=== PATIENT | male | born 1945 | race Caucasian/White ===

== ENCOUNTER 2019-09-25 18:31 | Emergency (ER) | payer OTHER, MEDICARE ==
[~2019-09-25] VITALS: Ht 167.6 cm; Wt 59.0 kg
[~2019-09-25 18:31] MED LIST: ACET325 PO; ASPI81CH PO; LISI5; OXYB5; SULTRIDS PO; TERA5
[2019-09-25 19:52] LABS: BASOPHILS ABSOLUTE AUTO 0.06 K/mm3 (0.00-0.23); BASOPHILS PERCENT AUTO 1 % (0-2); EOSINOPHILS ABSOLUTE AUTO 0.01 K/mm3 (0.00-0.68); EOSINOPHILS PERCENT AUTO 0 % (0-6); Hematocrit 48.6 % (37.0-53.0); Hemoglobin 16.6 g/dL (13.5-17.5); IMMATURE GRAN ABSOLUTE AUTO 0.07 K/mm3 (0.00-0.10); IMMATURE GRAN PERCENT AUTO 1 % (0-1); LYMPHOCYTES ABSOLUTE AUTO 0.48 K/mm3 (0.84-5.20); LYMPHOCYTES PERCENT AUTO 4 % (21-46); MONOCYTES ABSOLUTE AUTO 0.46 K/mm3 (0.16-1.47); MONOCYTES PERCENT AUTO 4 % (4-13); Mean Corpuscular HGB 32.5 pg (26.0-34.0); Mean Corpuscular HGB Conc 34.2 g/dL (31.5-36.5); Mean Corpuscular Volume 95 fL (80-100); Mean Platelet Volume 9.1 fL (9.1-12.4); NEUTROPHILS ABSOLUTE AUTO 11.02 K/mm3 (1.96-9.15); NEUTROPHILS PERCENT AUTO 91 % (41-73); Platelet Count 220 K/mm3 (150-400); RDW Coefficient Variation 12.4 % (11.7-14.2); RDW Standard Deviation 44.1 fL (35.1-46.3)
[2019-09-25 20:10] LABS: Alanine Aminotransfer (ALT/SGP 23 U/L (12-78); Albumin, Blood 3.5 g/dL (3.4-5.0); Albumin/Globulin Ratio 0.7 (0.8-1.8); Alk Phos 93 U/L (50-136); Anion Gap 11 mmol/L (6-16); Aspartate Aminotrans (AST/SGOT 25 U/L (12-37); Bilirubin, Total 0.9 mg/dL (0.1-1.0); Blood Urea Nitrogen 17 mg/dL (8-24); Bun/Creatinine Ratio 14.8 (12.0-20.0); CO2, Blood 21 mmol/L (21-32); Calcium, Blood 8.3 mg/dL (8.5-10.1); Chloride, Blood 101 mmol/L (98-108); Creatinine, Blood 1.15 mg/dL (0.60-1.20); Ethanol (Alcohol), Blood, Med <3 mg/dL; Globulin, Blood 4.8 g/dL (2.2-4.0); Glomerular Filtration Rate >60 (60-); Glucose, Blood 126 mg/dL (70-99); Sodium, Blood 133 mmol/L (136-145); Total Protein, Blood 8.3 g/dL (6.4-8.2)
[2019-09-25 20:43] LABS: Source, Urine Catheter
[2019-09-25 20:47] LABS: Bilirubin, Urine Neg (Neg); Blood, Urine 5+ (Neg); Glucose Qualitative, Urine Neg (Neg); Ketones, Urine 1+ (Neg); Leukocyte Esterase, Urine 3+ (Neg); Nitrite, Urine Pos (Neg); Protein, Urine 3+ (Neg); Specific Gravity, Urine 1.015 (1.003-1.022); Urobilinogen, Urine NORM (Normal)
[2019-09-25 20:53] LABS: Appearance, Urine Hazy (Clear); Color, Urine Yellow (P-Yellow)
[2019-09-25 20:58] LABS: Amorphous Light (0-Heavy); Bacteria Mod /hpf; Squamous Epithelial Cells Few /hpf (Few); Transitional Epithelial Cells Rare /hpf (0-Rare)
[2019-09-25 21:10] LABS: U Amphetamine Screen Not Detected; U Barbituate Screen Not Detected; U Benzodiazapine Screen Not Detected; U Buprenorphine Screen Not Detected; U Cannabinoids Screen Not Detected; U Cocaine Screen Not Detected; U Methadone Screen Not Detected; U Methamphetamine Screen Not Detected; U Opiates Screen Not Detected; U Oxycodone Screen Not Detected; U Phencyclidine Screen Not Detected; U Propoxyphene Screen Not Detected
[2019-09-25] MEDS ORDERED: AMLO5 PO (21:55)
[2019-09-25] MEDS ORDERED: FINA5 PO (22:08)
[2019-09-25] MEDS ORDERED: CALCIUM 600 +1 EA11 PO (22:09)
[2019-09-25] MEDS ORDERED: OXYB5 PO (22:09)
== END 2019-09-26 00:11 | disposition home or self-care (01) ==
LOC: ER 18:31
PROVIDERS: Emergency Medicine
DX: R56.9 Unspecified convulsions (principal); I10 Essential (primary) hypertension; Z79.82 Long term (current) use of aspirin; Z79.899 Other long term (current) drug therapy; Z87.820 Personal history of traumatic brain injury
CPT/HCPCS: 36415; 51702; 70450; 80053; 81001; 85025; 87077; 87086; 87186; 93005; 93010; 99284-25; G0480

== ENCOUNTER 2020-02-14 07:17 | Emergency (ER) | payer OTHER, MEDICARE ==
[~2020-02-14] VITALS: Ht 154.9 cm; Wt 78.9 kg
[~2020-02-14 07:17] MED LIST changes: +AMLO5 PO; +CALCIUM 600 +1 EA11 PO; +FINA5 PO; +OXYB5 PO
[2020-02-14 08:45] LABS: Source, Urine Catheter
[2020-02-14 08:50] LABS: Bilirubin, Urine Neg (Neg); Blood, Urine 2+ (Neg); Glucose Qualitative, Urine Neg (Neg); Ketones, Urine Neg (Neg); Leukocyte Esterase, Urine 2+ (Neg); Nitrite, Urine Neg (Neg); Protein, Urine Neg (Neg); Urobilinogen, Urine NORM (Normal)
[2020-02-14 09:04] LABS: Appearance, Urine Hazy (Clear); Color, Urine Yellow (P-Yellow); White Blood Cells, Urine 50-100 /hpf (0-5)
[2020-02-14 09:05] LABS: Bacteria Mod /hpf; Squamous Epithelial Cells Few /hpf (Few)
== END 2020-02-14 08:48 | disposition home or self-care (01) ==
LOC: ER 07:17
PROVIDERS: Emergency Medicine
DX: T83.098A Other mechanical complication of other urinary catheter, initial encounter (principal); R33.9 Retention of urine, unspecified; F03.90 Unspecified dementia, unspecified severity, without behavioral disturbance, psychotic disturbance, mood disturbance, and anxiety; I10 Essential (primary) hypertension; Z87.820 Personal history of traumatic brain injury; Z79.82 Long term (current) use of aspirin; Z79.899 Other long term (current) drug therapy
CPT/HCPCS: 51702; 81001; 87077; 87086; 87186; 99283-25

== ENCOUNTER 2021-04-29 19:37 | Emergency (ER) | payer OTHER ==
[~2021-04-29] VITALS: Ht 160 cm; Wt 56.7 kg
== END 2021-04-29 21:37 | disposition home or self-care (01) ==
LOC: ER 19:37
DX: R56.9 Unspecified convulsions (principal); I10 Essential (primary) hypertension; Z87.820 Personal history of traumatic brain injury; Z20.822 Contact with and (suspected) exposure to COVID-19; Z79.82 Long term (current) use of aspirin; Z79.899 Other long term (current) drug therapy
CPT/HCPCS: 93005; 93010; 99284-25

== ENCOUNTER 2022-01-05 16:44 | Inpatient (IN) | payer OTHER ==
[~2022-01-05] VITALS: Ht 157.5 cm; Wt 53.0 kg
[2022-01-05 18:10] LABS: Bun/Creatinine Ratio 11.8 (12.0-20.0); Calcium, Blood 9.4 mg/dL (8.5-10.1); Creatinine, Blood 1.61 mg/dL (0.60-1.20); Potassium, Blood 4.3 mmol/L (3.5-5.5)
[2022-01-05 18:41] LABS: BASOPHILS ABSOLUTE AUTO 0.08 K/mm3 (0.00-0.23); BASOPHILS PERCENT AUTO 1 % (0-2); EOSINOPHILS PERCENT AUTO 0 % (0-6); Hematocrit 47.4 % (37.0-53.0); Hemoglobin 15.7 g/dL (13.5-17.5); IMMATURE GRAN ABSOLUTE AUTO 0.27 K/mm3 (0.00-0.10); IMMATURE GRAN PERCENT AUTO 2 % (0-1); LYMPHOCYTES ABSOLUTE AUTO 0.63 K/mm3 (0.84-5.20); LYMPHOCYTES PERCENT AUTO 4 % (21-46); MONOCYTES ABSOLUTE AUTO 0.99 K/mm3 (0.16-1.47); MONOCYTES PERCENT AUTO 6 % (4-13); Mean Corpuscular HGB 32.8 pg (26.0-34.0); Mean Corpuscular HGB Conc 33.1 g/dL (31.5-36.5); Mean Corpuscular Volume 99 fL (80-100); Mean Platelet Volume 9.2 fL (9.1-12.4); NEUTROPHILS ABSOLUTE AUTO 15.18 K/mm3 (1.96-9.15); NEUTROPHILS PERCENT AUTO 88 % (41-73); Platelet Count 206 K/mm3 (150-400); RDW Coefficient Variation 12.5 % (11.7-14.2); RDW Standard Deviation 46.1 fL (35.1-46.3); Red Blood Cell Count 4.78 M/mm3 (4.30-5.90); White Blood Cell Count 17.15 K/mm3 (4.00-11.30)
[2022-01-05 19:26] LABS: Source, Urine Foley catheter
[2022-01-05 19:39] LABS: Appearance, Urine Cloudy (Clear); Bilirubin, Urine Neg (Neg); Blood, Urine 4+ (Neg); Color, Urine Yellow (P-Yellow); Glucose Qualitative, Urine 2+ (Neg); Ketones, Urine 2+ (Neg); Leukocyte Esterase, Urine 3+ (Neg); Nitrite, Urine Pos (Neg); Protein, Urine 3+ (Neg); Urobilinogen, Urine NORM (Normal)
[2022-01-05 19:52] LABS: White Blood Cells, Urine 50-100 /hpf (0-5)
[2022-01-05 19:53] LABS: Bacteria Many /hpf; Hyaline Casts Rare /lpf (0-2); Squamous Epithelial Cells Rare /hpf (Few)
[2022-01-05 23:37] LABS: Source, Urine Foley catheter
[2022-01-05 23:49] LABS: Bilirubin, Urine Neg (Neg); Blood, Urine 5+ (Neg); Glucose Qualitative, Urine Neg (Neg); Ketones, Urine Neg (Neg); Leukocyte Esterase, Urine 3+ (Neg); Nitrite, Urine Pos (Neg); Protein, Urine 2+ (Neg); Urobilinogen, Urine NORM (Normal)
[2022-01-05 23:51] LABS: Appearance, Urine Turbid (Clear); Color, Urine Pale Yellow (P-Yellow)
[2022-01-05 23:58] LABS: Amorphous Heavy (0-Heavy); Bacteria Many /hpf; Squamous Epithelial Cells Not Seen /hpf (Few); White Blood Cells, Urine 50-100 /hpf (0-5)
[2022-01-06 05:26] LABS: BASOPHILS ABSOLUTE AUTO 0.08 K/mm3 (0.00-0.23); BASOPHILS PERCENT AUTO 1 % (0-2); EOSINOPHILS ABSOLUTE AUTO 0.04 K/mm3 (0.00-0.68); EOSINOPHILS PERCENT AUTO 0 % (0-6); Hematocrit 39.6 % (37.0-53.0); Hemoglobin 13.2 g/dL (13.5-17.5); IMMATURE GRAN ABSOLUTE AUTO 0.08 K/mm3 (0.00-0.10); IMMATURE GRAN PERCENT AUTO 1 % (0-1); LYMPHOCYTES ABSOLUTE AUTO 2.04 K/mm3 (0.84-5.20); LYMPHOCYTES PERCENT AUTO 16 % (21-46); MONOCYTES ABSOLUTE AUTO 1.15 K/mm3 (0.16-1.47); MONOCYTES PERCENT AUTO 9 % (4-13); Mean Corpuscular HGB 33.3 pg (26.0-34.0); Mean Corpuscular HGB Conc 33.3 g/dL (31.5-36.5); Mean Corpuscular Volume 100 fL (80-100); Mean Platelet Volume 9.2 fL (9.1-12.4); NEUTROPHILS ABSOLUTE AUTO 9.76 K/mm3 (1.96-9.15); NEUTROPHILS PERCENT AUTO 74 % (41-73); Platelet Count 166 K/mm3 (150-400); RDW Coefficient Variation 12.5 % (11.7-14.2); RDW Standard Deviation 47.1 fL (35.1-46.3); Red Blood Cell Count 3.96 M/mm3 (4.30-5.90); White Blood Cell Count 13.15 K/mm3 (4.00-11.30)
[2022-01-06 05:50] LABS: Albumin, Blood 2.9 g/dL (3.4-5.0); Albumin/Globulin Ratio 0.9 (0.8-1.8); Bilirubin, Total 0.8 mg/dL (0.1-1.0); Bun/Creatinine Ratio 10.9 (12.0-20.0); Calcium, Blood 8.4 mg/dL (8.5-10.1); Creatinine, Blood 1.56 mg/dL (0.60-1.20); Globulin, Blood 3.4 g/dL (2.2-4.0); Magnesium, Blood 2.4 mg/dL (1.6-2.4); Potassium, Blood 3.6 mmol/L (3.5-5.5); Total Protein, Blood 6.3 g/dL (6.4-8.2)
--- NOTE | 2022-01-06 05:55 | NUR ---
SHIFT SUMMARY PT NEW ED ADMIT THIS EVENING. HX OF TBI. ABLE TO ANSWER SOME SIMPLE QUESTIONS, MOSTLY WITH ONE WORD ANSWERS OR NODDING HEAD. OTHERWISE MOSTLY NONVERBAL. HX OF TBI. PT REMAINED IN BED THROUGHOUT THE NIGHT. PER REPORT PT IS BEDBOUND AT BASELINE. CHRONIC HERBERT CATHETER, CHANGED DOWN IN ED BEFORE ADMISSION, DRAINING YELLOW URINE. PT DENIES PAIN. SLEPT WELL THROUGH THE NIGHT. VITAL SIGNS STABLE. WILL CONTINUE TO MONITOR.
--- NOTE | 2022-01-06 18:35 | NUR ---
END OF SHIFT SUMMARY: NO ACUTE CHANGES TO PT STATUS, NO SEIZURE ACTVITY OBSERVED THIS SHIFT. PT ABLE TO ANSWER YES/NO QUESTIONS. PT SWALLOW LIQUIDS OK, CHEWING FOOD FOR EXTENDED TIME. 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 PTS SON SAID THAT HE FEEDS SELF, BUT IS A MESSY EATER. PT FED SELF TODAY, DRINKS WATER VERY QUICKLY AND THEN BEGINS COUGHING. PT PLEASANT AND COOPERATIVE WITH CARES. ASSESSED PT AT BEDSIDE, ORDERED PAULO, ULTRASOUND, AND ECG. WAITING TO DO ECG IMAGING TOMORROW MORNING. PAULO/US TESTS HAVE RESULTED. MD UPDATED PT/SON AT BEDSIDE. VITALS STABLE.
--- NOTE | 2022-01-07 05:12 | NUR ---
SHIFT SUMMARY PT WITH MINIMAL VERBAL COMMUNICATION WHICH IS BASELINE FOR PT. HE WAS ABLE TO EXPRESS THROUGHOUT THE NIGHT THAT HE WANTS TO GO HOME. PT MOVES FREQUENTLY IN THE BED. SMEAR OF STOOL THIS EVENING. DID APPEAR TO HAVE ONE SMALL EPISODE OF NAUSEA. PT COUGHING INTERMITTENTLY, POSSIBLE FROM SWALLOWING HIS SALIVA. ATTEMPTED TO KEEP PT'S HEAD ELEVATED BUT PT SCOOTS HIMSELF DOWN TO THE BOTTOM OF THE BED. IV REPLACED X 1 DUE TO FIRST ONE LEAKING. SECOND, WHICH TOOK [address] IV BECAME OCCLUDED AND WOULD NOT FLUSH. UNABLE TO REGAIN IV ACCESS, MAINTENANCE CONTROLLER TO PASS ON TO DAY CHARGE TO ATTEMPT. HERBERT CATHETER PATENT AND DRAINING. VITAL SIGNS STABLE.
[2022-01-07 05:22] LABS: BASOPHILS ABSOLUTE AUTO 0.11 K/mm3 (0.00-0.23); BASOPHILS PERCENT AUTO 1 % (0-2); EOSINOPHILS ABSOLUTE AUTO 0.23 K/mm3 (0.00-0.68); EOSINOPHILS PERCENT AUTO 2 % (0-6); Hematocrit 43.9 % (37.0-53.0); Hemoglobin 14.8 g/dL (13.5-17.5); IMMATURE GRAN ABSOLUTE AUTO 0.06 K/mm3 (0.00-0.10); IMMATURE GRAN PERCENT AUTO 1 % (0-1); LYMPHOCYTES ABSOLUTE AUTO 1.32 K/mm3 (0.84-5.20); LYMPHOCYTES PERCENT AUTO 14 % (21-46); MONOCYTES ABSOLUTE AUTO 0.74 K/mm3 (0.16-1.47); MONOCYTES PERCENT AUTO 8 % (4-13); Mean Corpuscular HGB 33.4 pg (26.0-34.0); Mean Corpuscular HGB Conc 33.7 g/dL (31.5-36.5); Mean Corpuscular Volume 99 fL (80-100); Mean Platelet Volume 9.1 fL (9.1-12.4); NEUTROPHILS ABSOLUTE AUTO 7.17 K/mm3 (1.96-9.15); NEUTROPHILS PERCENT AUTO 75 % (41-73); Platelet Count 156 K/mm3 (150-400); RDW Coefficient Variation 12.1 % (11.7-14.2); RDW Standard Deviation 44.8 fL (35.1-46.3); Red Blood Cell Count 4.43 M/mm3 (4.30-5.90); White Blood Cell Count 9.63 K/mm3 (4.00-11.30)
[2022-01-07 05:55] LABS: Albumin, Blood 3.2 g/dL (3.4-5.0); Anion Gap 6 mmol/L (6-16); Blood Urea Nitrogen 15 mg/dL (8-24); Bun/Creatinine Ratio 11.1 (12.0-20.0); CO2, Blood 29 mmol/L (21-32); Calcium, Blood 8.6 mg/dL (8.5-10.1); Chloride, Blood 106 mmol/L (98-108); Creatinine, Blood 1.35 mg/dL (0.60-1.20); Glomerular Filtration Rate 51 (60-); Glucose, Blood 107 mg/dL (70-99); Phosphorus, Blood 2.3 mg/dL (2.5-4.9); Potassium, Blood 3.5 mmol/L (3.5-5.5); Sodium, Blood 141 mmol/L (136-145)
--- NOTE | 2022-01-07 17:42 | NUR ---
SHIFT SUMMARY PATIENT DENIES PAIN, NAUSEA, AND SHORTNESS OF BREATH. PATIENT IS BEDBOUND AT BASELINE. PATIENT HAD A SPEECH EVAL TODAY. THEY ARE RECOMMENDING PUREE DIET WITH THIN LIQUIDS, NO STRAWS. MINIMIZE DISTTRACTIONS DURING MEALS AND HELP FEED PATIENT. NEW IV PLACED THIS SHIFT. EEG COMPLETED, AWAITING RESULTS. PATIENT IS EATING AND DRINKING WELL. FAMILY VISITED MOST OF DAY. PATIENT IS A&O X2 MOSTLY. PATIENT DOES NOT VERBALIZE MUCH. PATIENT IS VERY PLEASANT AND COOPERATIVE WITH CARE, PATIENT LAUGHS A LOT. CHRONIC HERBERT IS PATENT AND DRAINING TO GRAVITY.
[2022-01-08 06:06] LABS: Albumin, Blood 2.8 g/dL (3.4-5.0); Anion Gap 9 mmol/L (6-16); Blood Urea Nitrogen 18 mg/dL (8-24); Bun/Creatinine Ratio 13.4 (12.0-20.0); CO2, Blood 22 mmol/L (21-32); Calcium, Blood 8.3 mg/dL (8.5-10.1); Chloride, Blood 107 mmol/L (98-108); Creatinine, Blood 1.34 mg/dL (0.60-1.20); Glomerular Filtration Rate 52 (60-); Glucose, Blood 114 mg/dL (70-99); Phosphorus, Blood 3.6 mg/dL (2.5-4.9); Potassium, Blood 4.3 mmol/L (3.5-5.5); Sodium, Blood 138 mmol/L (136-145)
--- NOTE | 2022-01-08 08:31 | NUR ---
Rn summary: Patient is alert and answers questions. He has garbled speech and is difficult to understand. Pt was a little burpy and had some hicups. Pt did have a small quarter sized emisis, looks possible like he is aspirating. Lungs are diminished in bases. Pt has some mild contracters in all limbs. pt was repositioned and medicated x1 with zofran for continued nausia. Huizar is patent. Plan is to DC possibly today if urine micro results are back.
[2022-01-08] MEDS ORDERED: Acetaminophen325 M1 PO (12:00)
[2022-01-08] MEDS ORDERED: CEPH500 PO (12:01)
[2022-01-08] MEDS ORDERED: VISBIOME 112.51 EACH PO (12:01)
--- NOTE | 2022-01-08 13:13 | NUR ---
DISCHARGE PATIENT TRANSPORTED VIA WHEELCHAIR TO PRIVATE VEHICLE. DISCHARGE PACKET EXPLAINED TO PATIENT AND BROTHER. BOTH STATED UNDERSTANDING, PACKET SENT WITH PATIENT. BELONGINGS SENT WITH PATIENT. IV REMOVED WITHOUT DIFFICULTY. MEDICATIOS FAXED TO PREFERRED PHARMACY. [facility] TO CALL PATIENT FOR FOLLOW APPOINTMENT. HERBERT PATENT AND DRAINING AT TIME OF DISCHARGE.
== END 2022-01-08 13:07 | disposition home or self-care (01) | DRG 698 ==
LOC: ER 16:44 → MEDS 21:12
PROVIDERS: Family Medicine; Nurse Practitioner Acute Care; Student in an Organized Health Care Education/Training Program; ADMIT Internal Medicine
DX: T83.511A Infection and inflammatory reaction due to indwelling urethral catheter, initial encounter (principal); R65.20 Severe sepsis without septic shock; A41.51 Sepsis due to Escherichia coli [E. coli]; N17.9 Acute kidney failure, unspecified; N39.0 Urinary tract infection, site not specified; G40.909 Epilepsy, unspecified, not intractable, without status epilepticus; N18.30 Chronic kidney disease, stage 3 unspecified; Z66 Do not resuscitate; Z98.890 Other specified postprocedural states; Z79.899 Other long term (current) drug therapy; Z88.8 Allergy status to other drugs, medicaments and biological substances; Z88.5 Allergy status to narcotic agent; Z88.1 Allergy status to other antibiotic agents; Z90.49 Acquired absence of other specified parts of digestive tract; N40.0 Benign prostatic hyperplasia without lower urinary tract symptoms; M19.90 Unspecified osteoarthritis, unspecified site; I10 Essential (primary) hypertension
CPT/HCPCS: 36415; 70551; 71045; 76770; 80048; 80053; 80069; 81001; 83605; 83735; 85025; 87040; 87077; 87086; 87186; 92526; 92610; 93005; 93010; 95819; 96374; 96375; 99285-25; A9270; J0696; J1644; J2405; J7030; J7120